=== PATIENT | female | born 1980 | race Two or more races ===

== ENCOUNTER 2021-07-03 12:21 | Outpatient (CLI) | payer OTHER ==
[2021-07-28] MEDS ORDERED: METHOCARBAMOL500 MG PO (11:08)
[2021-07-28] MEDS ORDERED: DICLOFENAC POTA50 MG PO (11:08)
== END 2021-07-03 12:33 | disposition home or self-care (01) ==
LOC: MRI 12:21
DX: M51.37 Other intervertebral disc degeneration, lumbosacral region (principal); M54.5 Low back pain
CPT/HCPCS: 72148